=== PATIENT | female | born 1995 | race Caucasian/White ===

== ENCOUNTER → 2020-01-26 09:55 | Outpatient (CLI) | payer OTHER, SELFPAY ==
[2020-01-26 10:34] LABS: Add Manual Diff / Slide Review NO; Basophils Absolute Auto 100 /uL (0-100); Basophils Percent Auto 0.6 % (0-2); Eosinophils Absolute Auto 100 /uL (0-450); Eosinophils Percent Auto 1.4 % (2-4); Hematocrit 40.4 % (36-46); Hemoglobin 13.5 g/dL (12.0-16.0); Lymphocytes Absolute Auto 2000 /uL (1100-4500); Lymphocytes Percent Auto 21.9 % (25-40); Mean Corpuscular HGB Conc 33.4 % (30-36); Mean Corpuscular Hemoglobin 27.7 PG (26-34); Mean Corpuscular Volume 82.8 fL (80-100); Monocytes Absolute Auto 500 /uL (0-900); Monocytes Percent Auto 5.6 % (3-14); Neutrophils Absolute Auto 6600 /uL (1500-7000); Neutrophils Percent Auto 70.5 % (50-75); Platelet Count 361 X10^3/uL (150-400); Red Blood Cell Count 4.88 X10^6/uL (4.0-5.2); White Blood Cell Count 9.3 X10^3/uL (4.5-11.0)
[2020-01-26 10:48] LABS: Aspartate Aminotransferase 18 IU/L (14-36); BUN Creatinine Ratio 18.2 (6-22); Blood Urea Nitrogen 8 mg/dL (7-17); Estimated Glomerular Filt Rate > 60.0 mL/min (>60)
[2020-01-26 10:52] LABS: Hemoglobin A1C% w Est Avg Glu 4.9 % (4.0-6.0)
[2020-01-26 11:51] LABS: Hepatitis B Surface Antigen NEGATIVE s/c (NEGATIVE); Rubella Antibody IgG 27.6 IU/mL (>15)
[2020-01-26 12:17] LABS: HIV 1 & 2 Ab/Ag 4th Gen Combo NEGATIVE (NEGATIVE); Hep C Virus Ab w/Reflex Quant NEGATIVE s/c (NEGATIVE)
[2020-01-26 12:47] LABS: Appearance Urine UA SL CLOUDY; Bilirubin Urine UA NEGATIVE (NEGATIVE); Color Urine UA YELLOW; Glucose Urine UA NEGATIVE (Negative); Ketones Urine UA NEGATIVE (NEGATIVE); Leukocyte Esterase Urine UA 1+ (NEGATIVE); Nitrite Urine UA NEGATIVE (Negative); Occult Blood Urine UA NEGATIVE (Negative); Protein Urine UA TRACE (Negative); Urobilinogen Urine UA 0.2 E.U./dL (0.2)
[2020-01-26 12:52] LABS: RBC Urine None Seen (0-5/HPF)
[2020-01-26 12:58] LABS: Amorphous Sediment Urine 1+; Bacteria Urine Many (>30); Mucus Urine 1+ (Negative); Squamous Epithelial Cell Urine 5-10 /HPF (0-5/HPF); WBC Urine 10-30/HPF (0-5/HPF)
[2020-01-26 14:18] LABS: Protein (Total) Urine Random 9 mg/dL (0-12); Protein Creatinine Ratio Urine 0.04 GRAM/24H
== END ==
PROVIDERS: Referring Provider Obstetrics & Gynecology; Visit Provider Obstetrics & Gynecology
DX: Z34.90 Encounter for supervision of normal pregnancy, unspecified, unspecified trimester (principal)
CPT/HCPCS: 36415; 80055; 81003; 81015; 82570; 83036; 84156; 84450; 84550; 85025; 86787; 86803; 86850; 86900; 86901; 87086; 87389

== ENCOUNTER → 2020-04-13 10:08 | Outpatient (CLI) | payer OTHER, SELFPAY ==
--- NOTE | 2020-04-13 10:10 | DI.US.S_ITS ---
PROCEDURE: US OB >= 14 WEEKS FETUS INDICATIONS: 20 WEEK ANATOMY SCAN OUTSIDE/PRIOR DATING DATA: Last menstrual period (LMP): 11/08/2019. LMP-based estimated date of delivery (EMERY): 08/17/2020. First dating scan (date and location): 01/05/2020. Estimated date of delivery (EMERY) from first dating scan: 08/21/2020. TECHNIQUE: Real-time scanning was performed of the fetus, with image documentation and biometric measurements. Endovaginal scanning: Not performed. COMPARISON: [facility], , OB <= 14 WEEKS FETUS, 01/19/2020, 10:36. FINDINGS: General: A single living intrauterine gestation is present. Presentation: Breech. Placenta: Placental position is anterior, without previa. Amniotic fluid index: 19.6 cm, normal range is 5-24 cm. heart rate: 157 beats per minute. Maternal cervical canal: 5.6 cm long. Normal lower limit is 2.5 cm. biometrics: Biparietal diameter: 5.1 cm. 21 weeks 2 days. Head circumference: 18.8 cm. 21 weeks 1 day. Abdominal circumference: 16.2 cm. 21 weeks 2 days. Femur length: 3.5 cm. 20 weeks 1 day. Estimated gestational age from initial scan: 21 weeks 3 days. Composite gestational age from present scan: 21 weeks 2 days Estimated weight and percentile: 408 g. 34%. Measurement variability for biometric dating: +/- 7 days from 14 weeks to 15 weeks 6 days gestation, +/- 10 days from 16 weeks to 21 weeks 6 days gestation, +/- 2 weeks from 22 weeks to 27 weeks 6 days gestation, +/- 3 weeks for 28 weeks gestation or later. weight reference: 4500 g or EFW >90/95% is considered macrosomia or large for gestational age. EFW <10% is small for gestational age. EFW 5% or less is considered intra-uterine growth restriction. Anatomic survey: Neuro: Ventricles are non-dilated at less than 10 mm. Cisterna magna is normal at 3-11 mm. Cerebellum is normal in size and morphology. Nuchal skin fold: Normal at less than 6 mm between 14-21 weeks gestational age. Face: Nose and lips, facial profile are normal. Spine: No evidence for spina bifida. Heart: 4-chambered heart is present, with normal ventricular outflow tracts. Diaphragm: Diaphragm is intact. Stomach: Left-sided stomach is present. Kidneys: No hydronephrosis. Normal is less than 5 mm in 2nd trimester, less than 7 mm in 3rd trimester. Cord: 3-vessel cord has orthotopic insertion. Bladder: Normal in size. Extremities: All 4 extremities identified. IMPRESSION: 1. Piper living intrauterine at 21 weeks 2/7 days based on today's ultrasound. This is concordant with the outside prior ultrasound. 2. Normal placenta and amniotic fluid. 3. Normal and complete anatomic survey. Dictated by: Hugo Escudero M.D. on 04/13/2020 at 16:56 Approved by: Hugo Escudero M.D. on 04/13/2020 at 17:00
== END ==
PROVIDERS: Referring Provider Obstetrics & Gynecology; Visit Provider Obstetrics & Gynecology
DX: Z34.82 Encounter for supervision of other normal pregnancy, second trimester (principal); Z3A.21 21 weeks gestation of pregnancy
CPT/HCPCS: 76811

== ENCOUNTER → 2020-05-20 15:20 | Outpatient (CLI) | payer OTHER, SELFPAY ==
[2020-05-20 15:49] LABS: Add Manual Diff / Slide Review NO; Basophils Absolute Auto 0 /uL (0-100); Basophils Percent Auto 0.3 % (0-2); Eosinophils Absolute Auto 100 /uL (0-450); Eosinophils Percent Auto 0.8 % (2-4); Hematocrit 35.9 % (36-46); Hemoglobin 11.7 g/dL (12.0-16.0); Lymphocytes Absolute Auto 2500 /uL (1100-4500); Lymphocytes Percent Auto 19.1 % (25-40); Mean Corpuscular HGB Conc 32.6 % (30-36); Mean Corpuscular Hemoglobin 27.9 PG (26-34); Mean Corpuscular Volume 85.6 fL (80-100); Monocytes Absolute Auto 800 /uL (0-900); Monocytes Percent Auto 5.7 % (3-14); Neutrophils Absolute Auto 9700 /uL (1500-7000); Neutrophils Percent Auto 74.1 % (50-75); Platelet Count 382 X10^3/uL (150-400); Red Blood Cell Count 4.19 X10^6/uL (4.0-5.2); Red Cell Distribution Width 13.1 % (11.6-14.8); White Blood Cell Count 13.2 X10^3/uL (4.5-11.0)
[2020-05-20 16:20] LABS: Aspartate Aminotransferase 18 IU/L (14-36); BUN Creatinine Ratio 17.6 (6-22); Blood Urea Nitrogen 9 mg/dL (7-17); Estimated Glomerular Filt Rate > 60.0 mL/min (>60); Uric Acid 3.8 mg/dL (2.5-6.2)
[2020-05-20 16:21] LABS: Creatinine Urine Random 21.9 mg/dL; Protein (Total) Urine Random 13 mg/dL (0-12); Protein Creatinine Ratio Urine 0.59 GRAM/24H
== END ==
PROVIDERS: Referring Provider Obstetrics & Gynecology; Visit Provider Obstetrics & Gynecology
DX: Z34.90 Encounter for supervision of normal pregnancy, unspecified, unspecified trimester (principal)
CPT/HCPCS: 36415; 82570; 84156; 84450; 84550; 85025

== ENCOUNTER → 2020-05-23 07:00 | Outpatient (CLI) | payer OTHER, SELFPAY ==
[2020-05-23 08:38] LABS: Protein (Total) Urine Random 13 mg/dL (0-12)
[2020-05-23 09:35] LABS: Hematocrit 34.8 % (36-46); Hemoglobin 11.5 g/dL (12.0-16.0)
[2020-05-23 10:47] LABS: GTT (PREG) 1 Hour PP 50gm Dose 102 mg/dL (76-139)
[2020-05-23 12:28] LABS: Collection Time Urine 24 Hours; Total Protein 24 Hour Urine 449 mg/day (42-225); Total Volume Urine 3450 mL
== END ==
PROVIDERS: Referring Provider Obstetrics & Gynecology; Visit Provider Obstetrics & Gynecology
DX: O12.10 Gestational proteinuria, unspecified trimester (principal); Z3A.22 22 weeks gestation of pregnancy
CPT/HCPCS: 36415; 82950; 84156; 85014; 85018; 86850

== ENCOUNTER → 2020-06-08 09:38 | Outpatient (CLI) | payer OTHER, SELFPAY ==
[2020-06-08 10:06] LABS: Add Manual Diff / Slide Review NO; Basophils Absolute Auto 100 /uL (0-100); Basophils Percent Auto 0.5 % (0-2); Eosinophils Absolute Auto 100 /uL (0-450); Eosinophils Percent Auto 0.6 % (2-4); Hematocrit 34.4 % (36-46); Hemoglobin 11.2 g/dL (12.0-16.0); Lymphocytes Absolute Auto 1600 /uL (1100-4500); Lymphocytes Percent Auto 14.2 % (25-40); Mean Corpuscular HGB Conc 32.6 % (30-36); Mean Corpuscular Hemoglobin 27.6 PG (26-34); Mean Corpuscular Volume 84.7 fL (80-100); Monocytes Absolute Auto 700 /uL (0-900); Neutrophils Absolute Auto 8700 /uL (1500-7000); Neutrophils Percent Auto 78.7 % (50-75); Platelet Count 354 X10^3/uL (150-400); Red Blood Cell Count 4.06 X10^6/uL (4.0-5.2); Red Cell Distribution Width 13.3 % (11.6-14.8); White Blood Cell Count 11.1 X10^3/uL (4.5-11.0)
[2020-06-08 10:17] LABS: Aspartate Aminotransferase 22 IU/L (14-36); BUN Creatinine Ratio 17.6 (6-22); Blood Urea Nitrogen 9 mg/dL (7-17); Estimated Glomerular Filt Rate > 60.0 mL/min (>60); Uric Acid 3.8 mg/dL (2.5-6.2)
== END ==
PROVIDERS: Referring Provider Obstetrics & Gynecology; Visit Provider Obstetrics & Gynecology
DX: O16.9 Unspecified maternal hypertension, unspecified trimester (principal)
CPT/HCPCS: 36415; 84450; 84550; 85025

== ENCOUNTER → 2020-06-23 11:40 | Outpatient (CLI) | payer OTHER, SELFPAY ==
[2020-06-23 13:04] LABS: Add Manual Diff / Slide Review NO; Basophils Absolute Auto 0 /uL (0-100); Basophils Percent Auto 0.4 % (0-2); Eosinophils Absolute Auto 100 /uL (0-450); Eosinophils Percent Auto 0.4 % (2-4); Hematocrit 34.3 % (36-46); Hemoglobin 11.1 g/dL (12.0-16.0); Lymphocytes Absolute Auto 1800 /uL (1100-4500); Mean Corpuscular HGB Conc 32.5 % (30-36); Mean Corpuscular Hemoglobin 27.2 PG (26-34); Mean Corpuscular Volume 83.8 fL (80-100); Monocytes Absolute Auto 800 /uL (0-900); Monocytes Percent Auto 6.7 % (3-14); Neutrophils Absolute Auto 8700 /uL (1500-7000); Neutrophils Percent Auto 76.5 % (50-75); Platelet Count 369 X10^3/uL (150-400); Red Blood Cell Count 4.09 X10^6/uL (4.0-5.2); Red Cell Distribution Width 13.2 % (11.6-14.8); White Blood Cell Count 11.4 X10^3/uL (4.5-11.0)
[2020-06-23 13:52] LABS: Aspartate Aminotransferase 21 IU/L (14-36); BUN Creatinine Ratio 19.1 (6-22); Blood Urea Nitrogen 9 mg/dL (7-17); Estimated Glomerular Filt Rate > 60.0 mL/min (>60); Uric Acid 4.4 mg/dL (2.5-6.2)
== END ==
PROVIDERS: Referring Provider Obstetrics & Gynecology; Visit Provider Obstetrics & Gynecology
DX: O16.9 Unspecified maternal hypertension, unspecified trimester (principal)
CPT/HCPCS: 36415; 84450; 84550; 85025

== ENCOUNTER 2020-07-08 10:07 | Outpatient (CLI) | payer OTHER, SELFPAY ==
--- NOTE | 2020-07-08 10:54 | PM.OBTRLD ---
Visit Information Visit Information Date of evaluation: 07/08/20 Primary OB Provider: Anali Garcia Reason for Evaluation: Yes non-stress test Comments/Additional reasons for admission: Patient is a 24-year-old 001 at 33 weeks gestation with a diagnosis of preeclampsia without severe features versus chronic hypertension with new onset proteinuria, being come managed with . Currently on 100 mg of labetalol b.i.d., pressures and symptoms well controlled.. Per MFM, patient for biweekly testing and weekly labs. Vital Signs Vital Signs: 107/68, HR 91 PFSH Medical History Anxiety (Acute) Leg fracture, right (Acute ~2017) Migraines (Acute) (spontaneous vaginal delivery) (Acute) UTI (urinary tract infection) (Acute) White coat syndrome with hypertension (Acute) Surgical History H/O wisdom tooth extraction (Acute) History of esophagogastroduodenoscopy (EGD) (Acute) S/P tonsillectomy and adenoidectomy (Acute) Family History Mother Schizophrenia Father Family history unknown Grandmother No problems noted. Grandfather Cardiac arrest Aortic aneurysm Family/Other Breast cancer Family/Other Diabetes mellitus Social History marital status: number of children: 1 household members: spouse and children pets and animals: Yes (X 2 cats (aware) and a dog) education level: high school occupational status: unemployed current occupational exposures/hazards: No special wade needs: No Smoking Status: Never smoker Objective Labs Result Diagrams: 07/08/20 11:25 Evaluation Evaluation Baseline heart rate: 135 Variability: Moderate (11-25) monitor accelerations: Present monitor decelerations: Absent Category of Tracing: Reactive Diagnosis, Plan/Disposition Plan/Disposition Plan: Home with routine follow-up. Labs drawn, will call patient if abnormal. OB Disposition: home
[2020-07-08 11:36] LABS: Add Manual Diff / Slide Review NO; Basophils Absolute Auto 100 /uL (0-100); Basophils Percent Auto 0.7 % (0-2); Eosinophils Absolute Auto 100 /uL (0-450); Eosinophils Percent Auto 0.8 % (2-4); Hematocrit 32.1 % (36-46); Hemoglobin 10.6 g/dL (12.0-16.0); Lymphocytes Absolute Auto 1700 /uL (1100-4500); Lymphocytes Percent Auto 17.6 % (25-40); Mean Corpuscular HGB Conc 33.1 % (30-36); Mean Corpuscular Hemoglobin 27.2 PG (26-34); Mean Corpuscular Volume 82.2 fL (80-100); Monocytes Absolute Auto 400 /uL (0-900); Monocytes Percent Auto 4.3 % (3-14); Neutrophils Absolute Auto 7500 /uL (1500-7000); Neutrophils Percent Auto 76.6 % (50-75); Platelet Count 337 X10^3/uL (150-400); Red Blood Cell Count 3.91 X10^6/uL (4.0-5.2); Red Cell Distribution Width 13.4 % (11.6-14.8); White Blood Cell Count 9.8 X10^3/uL (4.5-11.0)
[2020-07-08 16:13] LABS: Aspartate Aminotransferase 27 IU/L (14-36); BUN Creatinine Ratio 16.3 (6-22); Blood Urea Nitrogen 7 mg/dL (7-17); Estimated Glomerular Filt Rate > 60.0 mL/min (>60); Uric Acid 4.6 mg/dL (2.5-6.2)
== END 2020-07-08 11:30 | disposition home or self-care (01) ==
LOC: LABOR 10:42 → OB 07-11 16:40
PROVIDERS: Referring Provider Obstetrics & Gynecology; Visit Provider Obstetrics & Gynecology
DX: O16.9 Unspecified maternal hypertension, unspecified trimester (principal); Z3A.33 33 weeks gestation of pregnancy
CPT/HCPCS: 59025; 84450; 84550; 85025; G0378; G0379

== ENCOUNTER 2020-07-14 15:44 | Outpatient (CLI) | payer OTHER, SELFPAY ==
--- NOTE | 2020-07-14 16:32 | PM.OBTRLD ---
Visit Information Visit Information Date of evaluation: 07/14/20 Primary OB Provider: Anali Garcia Reason for Evaluation: Yes non-stress test Comments/Additional reasons for admission: Patient is a 24yo @34 weeks gestation with a diagnosis of preeclampsia without severe features. Vital Signs Vital Signs: 133/83, HR 108 PFSH Medical History Anxiety (Acute) Leg fracture, right (Acute ~2017) Migraines (Acute) (spontaneous vaginal delivery) (Acute) UTI (urinary tract infection) (Acute) White coat syndrome with hypertension (Acute) Surgical History H/O wisdom tooth extraction (Acute) History of esophagogastroduodenoscopy (EGD) (Acute) S/P tonsillectomy and adenoidectomy (Acute) Family History Mother Schizophrenia Father Family history unknown Grandmother No problems noted. Grandfather Cardiac arrest Aortic aneurysm Family/Other Breast cancer Family/Other Diabetes mellitus Social History marital status: number of children: 1 household members: spouse and children pets and animals: Yes (X 2 cats (aware) and a dog) education level: high school occupational status: unemployed current occupational exposures/hazards: No special wade needs: No Smoking Status: Never smoker Evaluation Evaluation Baseline heart rate: 132 Variability: Moderate (11-25) monitor accelerations: Present monitor decelerations: Absent Category of Tracing: Reactive Diagnosis, Plan/Disposition Plan/Disposition Plan: Patient sent for clinic visit and BPP. OB Disposition: home
== END 2020-07-14 16:40 | disposition home or self-care (01) ==
LOC: OB 07-15 12:19
PROVIDERS: Referring Provider Obstetrics & Gynecology; Visit Provider Obstetrics & Gynecology
DX: O14.93 Unspecified pre-eclampsia, third trimester (principal); Z3A.34 34 weeks gestation of pregnancy
CPT/HCPCS: 59025; G0378; G0379

== ENCOUNTER 2020-07-21 15:46 | Outpatient (CLI) | payer OTHER, SELFPAY ==
--- NOTE | 2020-07-21 16:49 | PM.OBTRLD ---
Visit Information Visit Information Date of evaluation: 07/21/20 Primary OB Provider: Anali Garcia Reason for Evaluation: Yes non-stress test Comments/Additional reasons for admission: Patient is a 24yo @35+5 with cHTN on 100mg BID labetalol, presenting for scheduled NST. Vital Signs Vital Signs: 128/69, 78 PFSH Medical History Anxiety (Acute) Leg fracture, right (Acute ~2017) Migraines (Acute) (spontaneous vaginal delivery) (Acute) UTI (urinary tract infection) (Acute) White coat syndrome with hypertension (Acute) Surgical History H/O wisdom tooth extraction (Acute) History of esophagogastroduodenoscopy (EGD) (Acute) S/P tonsillectomy and adenoidectomy (Acute) Family History Mother Schizophrenia Father Family history unknown Grandmother No problems noted. Grandfather Cardiac arrest Aortic aneurysm Family/Other Breast cancer Family/Other Diabetes mellitus Social History marital status: number of children: 1 household members: spouse and children pets and animals: Yes (X 2 cats (aware) and a dog) education level: high school occupational status: unemployed current occupational exposures/hazards: No special wade needs: No Smoking Status: Never smoker Review of Systems Constitutional Constitutional: Reports system reviewed and no additional complaints, except as documented Exam Const General: cooperative, healthy appearing, comfortable and acute distress Evaluation Evaluation Baseline heart rate: 130 Variability: Moderate (11-25) monitor accelerations: Present monitor decelerations: Absent Category of Tracing: Reactive Diagnosis, Plan/Disposition Plan/Disposition Plan: Home with routine precautions. OB Disposition: home
== END 2020-07-21 16:45 | disposition home or self-care (01) ==
LOC: OB 07-26 11:45
PROVIDERS: PCP Obstetrics & Gynecology; Referring Provider Obstetrics & Gynecology; Visit Provider Obstetrics & Gynecology
DX: O10.913 Unspecified pre-existing hypertension complicating pregnancy, third trimester (principal); Z3A.35 35 weeks gestation of pregnancy
CPT/HCPCS: 59025; G0378; G0379

== ENCOUNTER → 2020-07-28 15:01 | Outpatient (CLI) | payer OTHER, SELFPAY ==
[2020-07-29 12:20] LABS: Strep Grp B PCR POS for Grp B Strep
== END ==
PROVIDERS: PCP Obstetrics & Gynecology; Visit Provider Obstetrics & Gynecology
DX: Z34.83 Encounter for supervision of other normal pregnancy, third trimester (principal); Z3A.36 36 weeks gestation of pregnancy
CPT/HCPCS: 87653

== ENCOUNTER 2020-08-04 16:00 | Outpatient (CLI) | payer OTHER, SELFPAY ==
--- NOTE | 2020-08-04 16:57 | P.TNLD_ITS ---
Visit Information Visit Information Date of evaluation: 08/04/20 Primary OB Provider: Anali Garcia On-call OB Provider: Renetta Cruz Reason for Evaluation: Yes non-stress test non-stress test reason: hyp ertension/pre-eclampsia Vital Signs Vital Signs: Initial blood pressure 139/77, repeat few minutes later 127/69 [facility] Medical History (Updated 08/04/20 @ 16:59 by Renetta Cruz MD) 37 or more weeks gestation of (Acute) Anxiety (Acute) Leg fracture, right (Acute ~2017) Migraines (Acute) (spontaneous vaginal delivery) (Acute) UTI (urinary tract infection) (Acute) White coat syndrome with hypertension (Acute) Surgical History H/O wisdom tooth extraction (Acute) History of esophagogastroduodenoscopy (EGD) (Acute) S/P tonsillectomy and adenoidectomy (Acute) Family History Mother Schizophrenia Father Family history unknown Grandmother No problems noted. Grandfather Cardiac arrest Aortic aneurysm Family/Other Breast cancer Family/Other Diabetes mellitus Social History marital status: number of children: 1 household members: spouse and children pets and animals: Yes (X 2 cats (aware) and a dog) education level: high school occupational status: unemployed current occupational exposures/hazards: No special wade needs: No Smoking Status: Never smoker Evaluation Evaluation Baseline heart rate: 125 Variability: Moderate (11-25) monitor accelerations: Present monitor decelerations: Absent Contraction Frequency (minutes): 0 Category of Tracing: Reactive Diagnosis, Plan/Disposition Final Diagnosis (1) 37 or more weeks gestation of : Status: Acute Plan/Disposition Plan: Home patient will keep her follow-up appointment in 5 days with induction scheduled in 8 days. Patient aware of all precautions. OB Disposition: home
== END 2020-08-04 17:35 | disposition home or self-care (01) ==
LOC: LABOR 16:33 → OB 08-05 12:42
PROVIDERS: PCP Obstetrics & Gynecology; Referring Provider Obstetrics & Gynecology; Visit Provider Obstetrics & Gynecology
DX: O13.3 Gestational [pregnancy-induced] hypertension without significant proteinuria, third trimester (principal); Z3A.38 38 weeks gestation of pregnancy
CPT/HCPCS: 59025; G0378; G0379

== ENCOUNTER 2020-08-08 12:35 | Outpatient (CLI) | payer OTHER, SELFPAY ==
--- NOTE | 2020-08-08 13:12 | PM.OBTRLD ---
Visit Information Visit Information Date of evaluation: 08/08/20 Primary OB Provider: Anali Garcia Reason for Evaluation: Yes non-stress test Comments/Additional reasons for admission: Scheduled NST for cHTN. Vital Signs Vital Signs: 121/89, HR 107 PFSH Medical History 37 or more weeks gestation of (Acute) Anxiety (Acute) Leg fracture, right (Acute ~2017) Migraines (Acute) (spontaneous vaginal delivery) (Acute) UTI (urinary tract infection) (Acute) White coat syndrome with hypertension (Acute) Surgical History H/O wisdom tooth extraction (Acute) History of esophagogastroduodenoscopy (EGD) (Acute) S/P tonsillectomy and adenoidectomy (Acute) Family History Mother Schizophrenia Father Family history unknown Grandmother No problems noted. Grandfather Cardiac arrest Aortic aneurysm Family/Other Breast cancer Family/Other Diabetes mellitus Social History marital status: number of children: 1 household members: spouse and children pets and animals: Yes (X 2 cats ([place]) and a dog) education level: high school occupational status: unemployed current occupational exposures/hazards: No special wade needs: No Smoking Status: Never smoker Review of Systems Constitutional Constitutional: Reports system reviewed and no additional complaints, except as documented Evaluation Evaluation Baseline heart rate: 130 Variability: Moderate (11-25) monitor accelerations: Present monitor decelerations: Absent Category of Tracing: Reactive Diagnosis, Plan/Disposition Plan/Disposition Plan: Home with plans for induction later this week. OB Disposition: home
== END 2020-08-08 13:19 | disposition home or self-care (01) ==
LOC: OB 08-09 15:02
PROVIDERS: PCP Obstetrics & Gynecology; Referring Provider Obstetrics & Gynecology; Visit Provider Obstetrics & Gynecology
DX: O13.3 Gestational [pregnancy-induced] hypertension without significant proteinuria, third trimester (principal); Z3A.38 38 weeks gestation of pregnancy
CPT/HCPCS: 59025; G0378; G0379

== ENCOUNTER → 2020-08-09 13:45 | Outpatient (CLI) | payer OTHER, SELFPAY ==
[2020-08-10 14:19] LABS: COVID19 Sendout Not Detected (Not Detect)
== END ==
PROVIDERS: PCP Obstetrics & Gynecology; Visit Provider Physician Assistant
DX: Z11.59 Encounter for screening for other viral diseases (principal)
CPT/HCPCS: 87635

== ENCOUNTER 2020-08-11 19:10 | Inpatient (IN) | payer OTHER, SELFPAY ==
[2020-08-11] MEDS: DINOPROSTONE VAG (CERVIDIL) 10 MG VAG (20:19)
[2020-08-11 20:49] LABS: Add Manual Diff / Slide Review NO; Basophils Absolute Auto 100 /uL (0-100); Basophils Percent Auto 0.7 % (0-2); Eosinophils Absolute Auto 100 /uL (0-450); Eosinophils Percent Auto 0.6 % (2-4); Hemoglobin 10.3 g/dL (12.0-16.0); Lymphocytes Absolute Auto 2600 /uL (1100-4500); Lymphocytes Percent Auto 21.7 % (25-40); Mean Corpuscular HGB Conc 33.1 % (30-36); Mean Corpuscular Hemoglobin 26.4 PG (26-34); Mean Corpuscular Volume 79.6 fL (80-100); Monocytes Absolute Auto 800 /uL (0-900); Monocytes Percent Auto 6.5 % (3-14); Neutrophils Absolute Auto 8300 /uL (1500-7000); Neutrophils Percent Auto 70.5 % (50-75); Platelet Count 348 X10^3/uL (150-400); Red Cell Distribution Width 14.1 % (11.6-14.8); White Blood Cell Count 11.8 X10^3/uL (4.5-11.0)
[2020-08-11 21:01] VITALS: BP 145/100
[2020-08-11 21:04] LABS: Aspartate Aminotransferase 26 IU/L (14-36); BUN Creatinine Ratio 21.1 (6-22); Blood Urea Nitrogen 12 mg/dL (7-17); Estimated Glomerular Filt Rate > 60.0 mL/min (>60); Uric Acid 5.4 mg/dL (2.5-6.2)
[2020-08-11] MEDS: LACTATED RINGERS 1,000 ML 100 ML IV (22:46)
[2020-08-11] MEDS: PENICILLIN G POTASSIUM 5,000,000 UNIT in DEXTROSE 5% IN WATER 250 ML IV (22:46)
[2020-08-11] MEDS: fentaNYL 100 MCG/2 ML INJ 50 MCG IV (23:55)
[2020-08-12] MEDS: fentaNYL 100 MCG/2 ML INJ ×2 (01:37→03:06)
[2020-08-12] MEDS: FENT 2MCG/ML BUPIV 0.125% EPI 200 MCG/100 ML PLAST..BAG 10 MCG EPIDURAL (03:05)
[2020-08-12] MEDS: PENICILLIN G POTASSIUM 3,000,000 UNIT/50 ML FROZ.PIGGY 100 UNIT IV ×2 (03:24→06:49)
[2020-08-12] MEDS: LACTATED RINGERS 1,000 ML 100 ML IV (04:22)
[2020-08-12] MEDS: OXYTOCIN PREMIX 30 UNIT/500 ML PLAST..BAG IV (04:53)
--- NOTE | 2020-08-12 08:56 | P.HPOB_ITS ---
OB HPI Date/Time Date of admission: 08/11/20 Date Patient Seen: 08/12/20 Time Patient Seen: 08:57 History of Present Condition Chief complaint: Induction : 2 Para: 1 Estimated Date of Delivery: 08/20/20 Estimated Gestational Age (weeks): 39 Narrative: Zita Dias is a 24 year old female @38+6 with gHTN, possible cHTN, presenting for induction of labor as recommended by MFM. The patient reports feeling well with no PIH complaints, is comfortable with her epidural this AM with no obstetrical complaints. The patient's hypertension was diagnosed at 27 weeks gestation, and she has been managed on 100mg labetalol BID with stable labs, blood pressures, and symptoms. Her has been otherw ise uncomplicated, and her first was uncomplicated, ending in a VAVD for a 7#4oz baby. The patient denies any prior history of HTN, and denies any contributory medical, surgical, family, or social history. Indications Indication for induction OB: medical complication History of Present care: initiated at week # (7) and number of visits Dating criteria: based on 1st trimester US only Ultrasounds: normal 1st trimester US and normal mid trimester US Obstetrical complications: gestational hypertension Medical complications: none Preadmission Labs Blood type: A (-) negative (rhogam received 06/08) -: Antibody screen: negative, GBS status: positive, HBsAG: negative, HIV: negative and RPR/VDLR: negative -: Chlamydia screen: not detected and Gonorrhea screen: not detected -: Rubella: immune and Varicella: immune Sequential screen: declined aneuploidy screening 1 hr GTT: 102 Prior (ies) History: G1: 02/26/18, 42 weeks, 7#4, F, postdates induction Evaluation Evaluation Baseline heart rate: 135 Variability: Moderate (11-25) monitor accelerations: Present monitor decelerations: Absent Category of Tracing: Reactive (cat 1) Cervical dilation (cm): 3 Cervical effacement (%): 80 station: -1 Laboratory results: Laboratory Tests 08/11/20 08/11/20 08/11/20 20:35 20:35 20:35 WBC 11.8 H RBC 3.90 L Hgb 10.3 L Hct 31.0 L MCV 79.6 L MCH 26.4 MCHC 33.1 RDW 14.1 Plt Count 348 Neut % (Auto) 70.5 Lymph % (Auto) 21.7 L [place] % (Auto) 6.5 Eos % (Auto) 0.6 L Baso % (Auto) 0.7 Neut # (Auto) 8300 H Lymph # (Auto) 2600 [place] # (Auto) 800 Eos # (Auto) 100 Baso # (Auto) 100 BUN 12 Creatinine 0.57 Estimated GFR > 60.0 BUN/Creatinine Ratio 21.1 Uric Acid 5.4 AST 26 Blood Type A Negative Antibody Screen Negative Comments: AROM for clear fluid this AM. EFW 7#8. [facility] Medical History 37 or more weeks gestation of (Acute) Anxiety (Acute) Leg fracture, right (Acute ~2017) Migraines (Acute) (spontaneous vaginal delivery) (Acute) UTI (urinary tract infection) (Acute) White coat syndrome with hypertension (Acute) Surgical History H/O wisdom tooth extraction (Acute) History of esophagogastroduodenoscopy (EGD) (Acute) S/P tonsillectomy and adenoidectomy (Acute) Family History Mother Schizophrenia Father Family history unknown Grandmother No problems noted. Grandfather Cardiac arrest Aortic aneurysm Family/Other Breast cancer Family/Other Diabetes mellitus Social History marital status: number of children: 1 household members: spouse and children pets and animals: Yes (X 2 cats (aware) and a dog) education level: high school occupational status: unemployed current occupational exposures/hazards: No special wade needs: No Smoking Status: Never smoker Meds Home Medications and Allergies Home Medications Medication Instructions Recorded Confirmed Type prenat.vits,gautam,[id number] 1 tab PO DAILY 01/04/20 08/11/20 History labetalol 100 mg PO BID 08/11/20 08/11/20 History Allergies Allergy/AdvReac Type Severity Reaction Status Date / Time No Known Drug Allergies Allergy Verified 08/11/20 19:54 Review of Systems Constitutional Constitutional: Reports system reviewed and no additional complaints, except as documented Cardiovascular Cardiovascular: Reports system reviewed and no additional complaints, except as documented Respiratory Respiratory: Reports system reviewed and no additional complaints, except as documented Gastrointestinal Gastrointestinal: Reports system reviewed and no additional complaints, except as documented Genitourinary Genitourinary: Reports system reviewed and no additional complaints, except as documented Neurologic Neurologic: Reports system reviewed and no additional complaints, except as documented Exam Vital Signs (past 8 hours): 125/71, HR 93 Const General: cooperative, healthy appearing and comfortable Resp Effort & Inspection: normal respiratory effort Auscultation: clear to auscultation bilaterally Cardio Rate: regular rate Rhythm: regular rhythm GI Palpation: soft and No tender (epidural in place) External Female Exam: normal external appearance Other: mucousy bloody show, clear fluid Objective Labs Result Diagrams: 08/11/20 20:35 08/11/20 20:35 Labs: Laboratory Results - last 24 hr 08/11/20 08/11/20 08/11/20 20:35 20:35 20:35 WBC 11.8 H RBC 3.90 L Hgb 10.3 L Hct 31.0 L MCV 79.6 L MCH 26.4 MCHC 33.1 RDW 14.1 Plt Count 348 Neut % (Auto) 70.5 Lymph % (Auto) 21.7 L [place] % (Auto) 6.5 Eos % (Auto) 0.6 L Baso % (Auto) 0.7 Neut # (Auto) 8300 H Lymph # (Auto) 2600 [place] # (Auto) 800 Eos # (Auto) 100 Baso # (Auto) 100 BUN 12 Creatinine 0.57 Estimated GFR > 60.0 BUN/Creatinine Ratio 21.1 Uric Acid 5.4 AST 26 Blood Type A Negative Antibody Screen Negative Assessment and Plan Assessment and Plan Assessment and Plan narrative: This patient is admitted for IOL for gHTN vs. cHTN, after joint management with [facility]. She progressed to a favorable cervix overnight with cervidil, has received an epidural, was AROMed this AM, and is on pitocin per protocol. Anticipate vaginal delivery. - cEFM, toco - continue pitocin per protocol - continue PCN per protocol - home labetalol ordered
--- NOTE | 2020-08-12 11:24 | P.PCNOB_ITS ---
Events: Induced HTN and Labor Induction Labor & Delivery Delivery date: 08/12/20 Intrapartal events: Acceleration and Deceleration Cervical ripening method: per Cervidil protocol Induction method: per pitocin protocol Delivery augmentation: rupture of membranes Delivery monitor: external FHT and external uterine Route of delivery: L&D Laceration Description: Perineal - 2nd Degree Delivery repair: vicryl Estimated blood loss (mL): 250 Anesthesia type: Epidural Narrative: This patient presented for induction of labor for gestational hypertension versus chronic hypertension, after being, managed with the [facility] and per [facility] recommendations. She underwent cervical ripening with Cytotec, was transition to Pitocin when her cervix became favorable, and underwent a room for clear fluid. She progressed rapidly to fully dilated, and after short 2nd stage, was delivered of a healthy baby boy, Apgars 8+9, weight 7#1. There was no nuchal cord, the shoulders delivered with ease, and a small second-degree perineal laceration was repaired with 3 0 Vicryl in the usual fashion. The placenta delivered spontaneously intact shortly after delivery, with a three-vessel cord. There were no intrapartum or immediate complications. Baby 1: Infant gender: Male Presentation: vertex position: Right Occiput Anterior Placenta delivery description: Spontaneous cord vessel description: 3 Vessels score (1 min): 8 score (5 min): 9 Narrative: 7#1 Plan for aftercare: Routine care
[2020-08-12] MEDS: DERMOPLAST SPRAY 20% 60 ML 1 SPRAY TOP (13:51)
[2020-08-12] MEDS: LANOLIN OINT 7 GM 1 APPLIC TOP (13:52)
[2020-08-12] MEDS: IBUPROFEN 600 MG TABLET PO ×2 (16:34→22:33)
[2020-08-12 20:46] VITALS: BP 131/85; PULSE 93
[2020-08-12] MEDS: LABETALOL 100 MG TABLET PO (20:46)
[2020-08-13] MEDS: IBUPROFEN 600 MG TABLET PO (05:28)
[2020-08-13 08:30] VITALS: BP 131/82; PULSE 79
[2020-08-13] MEDS: LABETALOL 100 MG TABLET PO (08:30)
--- NOTE | 2020-08-13 10:06 | PM.OBDS.1 ---
Discharge Providers Provider Date of admission: 08/11/20 19:10 Discharge Date: 08/13/20 Primary care physician: Anali Garcia MD Consults: 08/13/20 11:22 Consult to Certified Medical Dosimetrist Routine Comment: Discharge provider: Anali Garcia MD Summary Hospital Course Date Patient Seen: 08/13/20 Time Patient Seen: 10:10 Procedures: spontaneous vaginal delivery Hospital Course: This patient was admitted for induction of labor for gHTN vs cHTN, per [facility] guidelines. She underwent cervical ripening with cervidil and induction with pitocin. She progressed rapidly through active labor and was delivered of a healthy baby boy weighing 7#1 after a short 2nd stage. A small 2nd degree perineal laceration was repaired in the usual fashion, and she was discharged on PPD#1, meeting milestones appropriately. Peripartum Data Infant Delivery Method: Natural Vaginal Laceration Description: Perineal - 2nd Degree Procedures: complications: none 1: Gender: Male Disposition of : home Status at Discharge Cognitive/behavioral status at discharge: oriented Functional status at discharge: independent ambulation Overall status at discharge: patient is progressing back to baseline Time Spent with Patient Time attestation: Total time spent providing and/or coordinating discharge services: Objective Labs Result Diagrams: 08/11/20 20:35 08/11/20 20:35 Exam Vital Signs (past 8 hours): 131/82, HR 79 Narrative Exam Narrative: Patient reports feeling well, no GARRISON, visual changes, SOB, RUQ pain. Ambulating, eating, voiding, passing flatus, mild to moderate lochia, good pain control on motrin. Resumed labetalol 100mg BID,. Const General: cooperative, healthy appearing and comfortable Resp Effort & Inspection: normal respiratory effort Auscultation: clear to auscultation bilaterally Cardio Rate: regular rate Rhythm: regular rhythm GI Palpation: soft and No tender Other: fundus firm, 2 below u Other: deferred as patient in chair holding baby Discharge Plan Discharge Plan Patient Disposition: Home Discharge orders & Medications Prescriptions: Continued prenat.vits,gautam,[id number] Tablet 1 tab PO DAILY RF: 0 labetalol 100 mg tablet 100 mg PO BID RF: 0 Follow up/Referrals: Anali Garcia MD [Primary Care Provider] - 1 Week (Please follow up for blood pressure check in 1 week. 6 week visit: please follow up w/ Dr. Garcia on Saturday, Sep.26 @ 10am) Diet/Activity/Treatments Diet: Regular Activity: Nothing in the vagina for 6 weeks. Avoid lifting more than 10 lbs for 6 weeks. If you have increasing bleeding, fevers, chills, nausea, headache, visual changes, abnormal discharge, or any other concerning symptoms, call or come to the ED. Skin/Wound/Dressing Care Report to your healthcare provider any signs of infection, such as:: chills, fever, night sweats, increased pain, unusual drainage and unusual redness Visit Report/Discharge Packet Instructions: DI for Labor and Delivery, Vaginal Visit Report Forms: Patient Portal/API, Stroke Signs & Symptoms Discharge Data Primary Care Provider: Anali Garcia Attending Provider: Anali Garcia Admit Date/Time: 08/11/20 19:10
[2020-08-13] MEDS: RHO(D) IMMUNE GLOBULIN 1,500 UNIT SYRINGE 1500 UNIT IM (11:08)
== END 2020-08-13 11:25 | disposition home or self-care (01) | DRG 807 ==
PROVIDERS: Admitting Provider Obstetrics & Gynecology; PCP Obstetrics & Gynecology; Referring Provider Obstetrics & Gynecology; Visit Provider Obstetrics & Gynecology
DX: O13.4 Gestational [pregnancy-induced] hypertension without significant proteinuria, complicating childbirth (principal); Z37.0 Single live birth; O70.1 Second degree perineal laceration during delivery; Z3A.39 39 weeks gestation of pregnancy
CPT/HCPCS: 01967; 36415; 59050; 59400; 84450; 84550; 85025; 85461; 86850; 86900; 86901; G0378; G0379; J2540; J2590; J2790; J3010